=== PATIENT | female | born 1945 | race Caucasian/White ===

== ENCOUNTER 2021-05-05 10:25 | Emergency (ER) | payer MEDICARE, MEDICAID ==
[~2021-05-05] VITALS: Ht 157.5 cm; Wt 72.6 kg
[2021-05-05 11:33] LABS: URINE BILIRUBIN NEGATIVE (Negative); URINE BLOOD 2+ (Negative); URINE CLARITY TURBID; URINE COLOR YELLOW; URINE GLUCOSE-RANDOM NEGATIVE (Negative); URINE KETONES TRACE (Negative); URINE NITRITE-REFLEX NEGATIVE (Negative); URINE PROTEIN 2+ (Negative); URINE SPECIFIC GRAVITY >= 1.030 (1.005-1.030); URINE UROBILINOGEN 0.2 E.U./dl (0.2-1.0)
[2021-05-05 11:35] LABS: URINE LEUKOCYTES-REFLEX 3+ (Negative)
[2021-05-05 11:44] LABS: CASTS None Seen /LPF (None Seen); CRYSTALS None Seen /LPF (None Seen); SQUAMOUS NONE SEEN /LPF (0-3); URINE WBC-REFLEX >25 Many /HPF (0-5)
[2021-05-05 11:46] LABS: BACTERIA-REFLEX 1-9 Few /HPF (None Seen); URINE RBC 3-10 Few /HPF (0-2)
[2021-05-05] MEDS ORDERED: MACROBID 100 M100 M1 PO (14:44)
[2021-05-05] MEDS ORDERED: HYDROCORTISONE30 G9 RECTAL (14:46)
[2021-05-05 15:11] VITALS: BP 148/67
== END 2021-05-05 15:12 | disposition home or self-care (01) ==
LOC: M.ERS 10:25
PROVIDERS: Physician Assistant
DX: N39.0 Urinary tract infection, site not specified (principal); K64.9 Unspecified hemorrhoids; N93.8 Other specified abnormal uterine and vaginal bleeding; I10 Essential (primary) hypertension; G40.909 Epilepsy, unspecified, not intractable, without status epilepticus

== ENCOUNTER 2021-08-24 12:13 | Emergency (ER) | payer MEDICARE, MEDICAID ==
[~2021-08-24] VITALS: Ht 154.9 cm; Wt 72.6 kg
[~2021-08-24 12:13] MED LIST: HYDROCORTISONE30 G9 RECTAL; MACROBID 100 M100 M1 PO
[2021-08-24] MEDS ORDERED: TYLOPHEN500 MG PO (12:17)
[2021-08-24] MEDS ORDERED: CERTAVITE SR-A1 EACH PO (12:18)
[2021-08-24] MEDS ORDERED: FLEXERIL PO (12:18)
[2021-08-24] MEDS ORDERED: COLACE100 MG PO (12:18)
[2021-08-24] MEDS ORDERED: DILANTIN30 MG PO (12:19)
[2021-08-24] MEDS ORDERED: ESCITALOPRA5 MG/5 ML PO (12:19)
[2021-08-24] MEDS ORDERED: FISH OIL 1,0001 EAC9 PO (12:19)
[2021-08-24] MEDS ORDERED: NORCO7.5 PO (12:20)
[2021-08-24] MEDS ORDERED: MOBIC7.5 MG PO (12:20)
[2021-08-24] MEDS ORDERED: MIRALAX119 GM PO (12:20)
[2021-08-24] MEDS ORDERED: LORATIDINE 10 M10 M1 PO (12:20)
[2021-08-24] MEDS ORDERED: TOPROL XL50 MG PO (12:20)
[2021-08-24] MEDS ORDERED: ARTIFICIAL TEAR15 ML OPHTHALMIC (12:22)
[2021-08-24] MEDS ORDERED: PHENOBARBITAL64.8 MG PO (12:22)
[2021-08-24] MEDS ORDERED: PHENYTEK200 MG PO (12:23)
[2021-08-24] MEDS ORDERED: KLOR-CON 1010 MEQ PO (12:23)
[2021-08-24] MEDS ORDERED: SINGULAIR 10 MG10 MG PO (12:24)
[2021-08-24] MEDS ORDERED: VITAMIN D250 MCG PO (12:25)
[2021-08-24] MEDS ORDERED: ZESTORETIC 20-1 EACH PO (12:26)
[2021-08-24] MEDS ORDERED: OMEPRAZOLE 20 M20 M1 PO (12:26)
[2021-08-24] MEDS ORDERED: AKWA TEARS EYE15 ML OPHTHALMIC (12:26)
[2021-08-24] MEDS ORDERED: ONDANSETRON HCL4 M2 PO (12:27)
[2021-08-24 15:28] LABS: URINE BILIRUBIN NEGATIVE (Negative); URINE BLOOD 2+ (Negative); URINE CLARITY CLOUDY; URINE COLOR YELLOW; URINE GLUCOSE-RANDOM NEGATIVE (Negative); URINE KETONES NEGATIVE (Negative); URINE PROTEIN 1+ (Negative); URINE SPECIFIC GRAVITY 1.025 (1.005-1.030); URINE UROBILINOGEN 0.2 E.U./dl (0.2-1.0)
[2021-08-24 15:29] LABS: URINE LEUKOCYTES-REFLEX 3+ (Negative); URINE NITRITE-REFLEX POSITIVE (Negative)
[2021-08-24 15:38] LABS: SQUAMOUS >10 Many /LPF (0-3); URINE RBC >20 Many /HPF (0-2); URINE WBC-REFLEX >25 Many /HPF (0-5)
[2021-08-24 15:39] LABS: BACTERIA-REFLEX 1-9 Few /HPF (None Seen); CASTS None Seen /LPF (None Seen); CRYSTALS None Seen /LPF (None Seen)
[2021-08-24] MEDS ORDERED: CEPHALEXIN500 MG PO (15:42)
[2021-08-24 16:13] VITALS: BP 106/72
== END 2021-08-24 16:14 | disposition home or self-care (01) ==
LOC: M.ERS 12:13
PROVIDERS: Emergency Medicine
DX: S42.102A Fracture of unspecified part of scapula, left shoulder, initial encounter for closed fracture (principal); M25.552 Pain in left hip; N39.0 Urinary tract infection, site not specified; I10 Essential (primary) hypertension; G40.909 Epilepsy, unspecified, not intractable, without status epilepticus; Z79.899 Other long term (current) drug therapy; W19.XXXA Unspecified fall, initial encounter; Y93.89 Activity, other specified; Y92.89 Other specified places as the place of occurrence of the external cause; Y99.8 Other external cause status

== ENCOUNTER 2021-09-04 01:31 | Emergency (ER) | payer MEDICARE, MEDICAID ==
[~2021-09-04] VITALS: Ht 154.9 cm; Wt 52.6 kg
[~2021-09-04 01:31] MED LIST changes: +AKWA TEARS EYE15 ML OPHTHALMIC; +ARTIFICIAL TEAR15 ML OPHTHALMIC; +CEPHALEXIN500 MG PO; +CERTAVITE SR-A1 EACH PO; +COLACE100 MG PO; +DILANTIN30 MG PO; +ESCITALOPRA5 MG/5 ML PO; +FISH OIL 1,0001 EAC9 PO; +FLEXERIL PO; +KLOR-CON 1010 MEQ PO; +LORATIDINE 10 M10 M1 PO; +MIRALAX119 GM PO; +MOBIC7.5 MG PO; +NORCO7.5 PO; +OMEPRAZOLE 20 M20 M1 PO; +ONDANSETRON HCL4 M2 PO; +PHENOBARBITAL64.8 MG PO; +PHENYTEK200 MG PO; +SINGULAIR 10 MG10 MG PO; +TOPROL XL50 MG PO; +TYLOPHEN500 MG PO; +VITAMIN D250 MCG PO; +ZESTORETIC 20-1 EACH PO
[2021-09-04] MEDS ORDERED: SUPER THERAVIT1 EACH PO (01:40)
[2021-09-04] MEDS ORDERED: COLACE100 MG PO (01:40)
[2021-09-04] MEDS ORDERED: DILANTIN30 MG PO (01:41)
[2021-09-04 04:51] VITALS: BP 108/49
== END 2021-09-04 04:51 | disposition home or self-care (01) ==
LOC: M.ERS 01:31
DX: M25.512 Pain in left shoulder (principal); I10 Essential (primary) hypertension; Z79.899 Other long term (current) drug therapy; W19.XXXA Unspecified fall, initial encounter; Y93.89 Activity, other specified; Y92.89 Other specified places as the place of occurrence of the external cause; Y99.8 Other external cause status